=== PATIENT | male | born 1995 | race Caucasian/White ===

== ENCOUNTER 2024-11-12 06:24 | Emergency (ER) | payer OTHER, SELFPAY ==
[2024-11-12 06:30] VITALS: BP 112/86
--- NOTE | 2024-11-12 07:47 | ED.SKININJ ---
HPI-Injury
General
Chief Complaint: Bite
Source: patient
Time Seen by Provider: 11/12/24 07:07
History of Present Illness-Injury
Initial Injury comments:
For your 29-year-old male presenting from home for evaluation after he sustained laceration to the right index finger while attempting to remove a bag from a 3-month-old puppies mouth, tooth of the puppy got caught on the ring finger causing the
patient to sustain vertically oriented laceration. Patient is right-hand dominant, tetanus is up-to-date. Patient states that the puppy's vaccinations are not yet due to age the animal is domesticated. No other injury sustained.
Past History
Past History
ED Past Medical History: None
ED Past Surgical History: Orthopedic
Social History
Tobacco: Non-smoker
Alcohol: None
Drug: None
Personal: Single
Living: with family
Family History
Family History: Negative Diabetes, Hypertension or Early CAD
Review of Systems
Review of Systems
All Other Systems: ROS reviewed and negative except as documented in HPI and ROS
Phy Exam
Physical Exam
Physical Exam:
GENERAL: Alert , in no apparent distress
EYE: conjunctiva clear
Head: Normocephalic atraumatic
NECK: Supple,
ENT: mmm.
LUNGS: no acute respiratory distress
NEUROLOGICAL: Alert and oriented
SKIN: Warm and dry, approximately 1 cm vertically oriented superficial laceration from the tip of the ring finger extending down towards the DIP joint but does not cross the joint line. No active bleeding
MUSCULOSKELETAL: well perfused. Patient can flex and extend at PIP and DIP. Sensation grossly intact to light touch
PSYCH: Normal and appropriate interaction.
Scores
Heart Failure Risk
Heart Failure Risk Score: Not Applicable
Heart Score for Chest Pain Patients
STEMI patient?: Not applicable
Withdrawal Assessment of Alcohol
Withdrawal Assessment Completed?: Not applicable
Course
Vital Signs
Initial and Last Documented VS:
Initial Vital Signs
Temp Pulse Resp BP Pulse Ox
98.6 F 92 16 112/86 5
11/12/24 06:30 11/12/24 06:30 11/12/24 06:30 11/12/24 06:30 11/12/24 06:30
Last Documented Vital Signs
Temp Pulse Resp BP Pulse Ox
98.6 F 92 16 112/86 5
11/12/24 06:30 11/12/24 06:30 11/12/24 06:30 11/12/24 06:30 11/12/24 06:30
Procedures
Laceration Closure
Right Fourth Finger:
Status of Wound: clean
Size of Wound in cm: 1
Description of Wound Edges: sharp
Preparation: cleaned with saline
Anesthesia: Digital-Regional
Revision/Debridement: routine- no revision
Skin Closure Material: 5-0 prolene
Number of sutures: 2
Additional information:
Laceration was loosely approximated given how the laceration occurred
MDM/Problems Addressed
Differential Diagnosis Includes:
Superficial laceration without any concern for nerve or tendon injury, I do not have concern for fracture
MDM/Problems Addressed:
29-year-old male presenting to the ER for evaluation following accidental laceration to the right ring finger when his finger got caught inside of puppies mouth. Laceration repaired without difficulty as above. Will initiate the patient on
Augmentin. Patient and mother advised on proper wound care. Return precautions to the ER discussed. Suture removal in 10 to 12 days. Patient aware of return precautions.
*Pulse Oximetry
Patient hypoxic: no
*Critical Care Note
Total Time (30-74mins, 75-104mins- exclusive of procedures): Not Applicable
ED Attending Note
-
Portions of this chart may have been created with voice recognition software.� Occasional wrong word or��sound alike� substitutions may have occurred due to the inherent limitations of voice recognition software.
Discharge Plan
Departure
Patient Disposition: Home (Routine Discharge)
Date of Disposition: 11/12/24
Time of Disposition: 07:47
Patient with high blood pressure during this ER visit?: No
Discharge Problem:
Laceration of right ring finger
Instructions: Animal Bites (DC)
Prescriptions:
New
amoxicillin-pot clavulanate 875-125 mg tablet
1 tab PO BID 5 Days Qty: 10 0RF
No Action
fexofenadine [Griselda] 180 MG tablet
180 mg PO DAILY
citalopram 20 MG tablet
20 mg PO DAILY
ibuprofen 200 MG tablet
400 mg PO Q6HPRN PRN (Reason: pain)
Sudafed
1 - 2 tab PO PRN PRN (Reason: as needed)
hydrocodone-acetaminophen 1 TABLET tablet
1 tab PO Q4HPRN PRN (Reason: pain) Qty: 10 0RF
Referrals:
UNKNOWN - PT DOES,NOT KNOW [Family Provider] -
Interventions
Interventions:
*Risk Screen - Suicide Last Done: 11/12/24 06:30
*General Assessment Last Done: 11/12/24 07:59
*Neglect/Abuse Screening Last Done: 11/12/24 07:59
*ED- Fall Risk Assessment Last Done: 11/12/24 07:59
*ED COVID-19 Vaccine History Last Done: 11/12/24 07:59
*Nursing Disposition Last Done: 11/12/24 08:00
ED-Skin Assessment Last Done: 11/12/24 07:59
Discharge Date and Time
Discharge Date/Time: 11/12/24 08:00
Print Language: GEORGIAN
== END 2024-11-12 08:00 | disposition home or self-care (01) ==
LOC: EMR 06:24
PROVIDERS: EMERGENCY PHYSICIAN Emergency Medicine
DX: S61.214A Laceration without foreign body of right ring finger without damage to nail, initial encounter (principal); W44.F9XA Other object of natural or organic material, entering into or through a natural orifice, initial encounter; Z82.49 Family history of ischemic heart disease and other diseases of the circulatory system
CPT/HCPCS: 99282; 12001